=== PATIENT | female | born 1995 | race Asian ===

== ENCOUNTER 2019-02-20 10:21 | Emergency (ER) | payer MEDICAID ==
[~2019-02-20] VITALS: Ht 172.7 cm; Wt 59.0 kg
[2019-02-20 10:21] VITALS: BP_SYST 124
--- NOTE | 2019-02-20 10:21 | NUR ---
BROUGHT BACK TO BED #7 AND TRIAGED, REPORT GIVEN TO EVELIA
--- NOTE | 2019-02-20 10:43 | NUR ---
Patient is awake, alert, and oriented x4. Patient reports that she was diving yesterday and touched a snail without gloves. She is now complaining of a burning sensation to right ear, but denies any pain. Redness noted to outer and inner ear. She denies nausea, vomiting, and diarrhea.
--- NOTE | 2019-02-20 10:46 | NUR ---
JING Garcia at bedside examining patient.
[2019-02-20] MEDS ORDERED: SULFAMETHOXAZOLE/TRIMETHOPR DS 1 TABLET PO ONE (11:00)
[2019-02-20] MEDS ORDERED: DIPHENHYDRAMINE HCL 25 MG CAPSULE PO ONE (11:00)
[2019-02-20] MEDS ORDERED: CEPHALEXIN 500 MG CAPSULE PO ONE (11:00)
[2019-02-20] MEDS ORDERED: PREDNISONE 20 MG TABLET PO ONE (11:00)
--- NOTE | 2019-02-20 11:13 | NUR ---
Patient given written and verbal discharge instructions and verbalizes understanding. ER MD Garcia discussed with patient the results and treatment provided. Patient in stable condition. ID arm band removed. Rx of Bendaryl, Prednisone, Keflex, Bactrim given. Patient educated on pain management and to follow up with PMD. Pain Scale 0. Opportunity for questions provided and answered. Medication side effect fact sheet provided.
[2019-02-20 11:14] VITALS: BP_SYST 124
== END 2019-02-20 11:13 | disposition home or self-care (01) ==
LOC: SED 10:21
DX: H60.11 Cellulitis of right external ear (principal); R21 Rash and other nonspecific skin eruption
CPT/HCPCS: 99284; J7512; Q0163